=== PATIENT | female | born 1930 | race Hispanic/Latino ===

== ENCOUNTER 2016-10-19 15:04 | Outpatient (CLI) | payer MEDICARE ==
--- NOTE | 2016-10-19 15:49 | XRay Report ---
LUMBAR SPINE RADIOGRAPHS: INDICATION: Backache. COMPARISON: None similar. FINDINGS: AP, oblique and lateral lumbar spine radiographs demonstrate mild to moderate lumbar levoscoliosis apex about L2-L3. Mild L3 superior endplate depression may be old, though exact age indeterminate and difficult to reliably differentiate acute from chronic on this exam alone. Asymmetric disc narrowing and spurring about the mid lumbar levels also seen. Mid to lower lumbar facet arthropathy. Clear visualized lung bases. Mild atherosclerotic calcifications. Nonobstructive bowel gas pattern. Intact SI joints with mild degenerative changes. CONCLUSION: Moderate multilevel lumbar spondylosis and age indeterminate mild L3 superior endplate depression, as described. Please correlate clinically and with prior lumbar imaging, if available. Thank you for the opportunity to participate in this patient's care.
== END 2016-10-19 15:05 | disposition home or self-care (01) ==
LOC: SPVIMAG 15:04
PROVIDERS: ATTEND Internal Medicine
DX: M47.896 Other spondylosis, lumbar region (principal); M12.88 Other specific arthropathies, not elsewhere classified, other specified site; I70.0 Atherosclerosis of aorta
CPT/HCPCS: 72110